=== PATIENT | female | born 1980 | race Caucasian/White ===

== ENCOUNTER 2022-02-23 18:04 | Emergency (ER) | payer BC ==
[2022-02-23] MEDS ORDERED: predniSONE 20 MG Tab PO ONE (19:56)
== END 2022-02-23 20:15 | disposition home or self-care (01) ==
LOC: JD.ED 18:04
DX: L51.9 Erythema multiforme, unspecified (principal)
CPT/HCPCS: 36415; 80053; 83735; 85025; 85652; 86140; 99283; J7512

== ENCOUNTER 2022-09-29 18:45 | Emergency (ER) | payer BC ==
[2022-09-29] MEDS ORDERED: Sodium Chloride 0.9% 10 ML Syringe FLUSH PRN (19:58)
[2022-09-29] MEDS ORDERED: Iopamidol 612 MG/ML 100 ML Bottle IVPUSH ONE (20:00)
[2022-09-29] MEDS ORDERED: Sodium Chloride 0.9% 10 ML Syringe FLUSH ONE (20:00)
[2022-09-29] MEDS ORDERED: Iopamidol 612 MG/ML 50 ML SDV IVPUSH ONE (20:00)
[2022-09-29 20:52] LABS: ESTIMATED GFR 110 mL/min (>60)
== END 2022-09-29 21:51 | disposition home or self-care (01) ==
LOC: JD.ED 18:45
DX: K42.0 Umbilical hernia with obstruction, without gangrene (principal)
CPT/HCPCS: 36415; 74177; 74177-26; 80053; 83605; 85025; 86140; 99284; J3490; Q9967